=== PATIENT | female | born 1940 | race Asian ===

== ENCOUNTER 2018-11-22 22:17 | Emergency (ER) | payer OTHER ==
[2018-11-22 22:21] VITALS: BP 156/46; PULSE 66; TEMP 97.4; BMI 21.6
[2018-11-22] MEDS ORDERED: AMOX TR/POT CLAV 875MG/125MG TABLETS (FP) PO ONE (23:24)
--- NOTE | 2018-11-22 23:25 | PDOC ---
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 She states that she measured bps at home to 180s and 200s systolic. Denies headaches, chest pain, shortness of breath and abdominal pain. Patient reports that she took two of losartan before coming to the ED. Patient states that she's had a lingering cold for the next two weeks. She reports some pain and sensation of fullness in her face. Denies fevers, chills, nausea, vomiting. Denies chest pain, cough. Denies sick contacts. Recently returned from [place]. Trialed on z-pack for possible sinus infection. Past History - Past Medical History Allergies/Adverse Reactions: Allergies Allergy/AdvReac Type Severity Reaction Status Date / Time Tetracyclines Allergy Intermediate Verified 11/22/18 22:21 Home Medications: Ambulatory Orders Alendronate Na [Fosamax (Weekly)] 70 mg PO Q7D 03/29/15 Aspirin [Aspirin EC] 81 mg PO DAILY 03/29/15 Calcium Carbonate/Vitamin D3 [Calcium 250-D Tablet] 1 each PO DAILY 03/29/15 Cholecalciferol (Vitamin D3) [Vitamin D3] 1,000 unit PO DAILY 03/29/15 Cyclosporine [Restasis] 1 each OP BID 03/29/15 Docosahexanoic Acid/Epa [Fish Oil Softgel] 1 cap PO DAILY 03/29/15 Losartan Potassium 100 mg PO DAILY 03/29/15 Multivitamins [Multivit ([facility] Formul[facility])] 1 tab PO DAILY 03/29/15 Propylene Glycol/Peg 400 [Systane 0.3-0.4% Eye Drops] 30 ml OP QID 03/29/15 Simvastatin 10 mg PO DAILY 03/29/15 Mag Carb/Aluminum Hydrox/Algin [Gaviscon Liquid] 355 ml PO PRN PRN #0 oral.susp 03/30/15 Pantoprazole Sodium [Protonix -] 40 mg PO HS #30 tablet.ec 03/30/15 Terbinafine HCl 250 mg PO DAILY 03/30/15 Amoxicillin/Potassium Clav [Augmentin 875-125 Tablet] 1 each PO BID #20 tablet 11/22/18 Anemia: No Asthma: No CVA: No COPD: No Dementia: No Diabetes: No HTN: Yes Hypercholesterolemia: Yes Seizures: No - Suicide/Smoking/Psychosocial Hx Smoking History: Never smoked Hx Alcohol Use: Yes ([facility]) Drug/Substance Use Hx: No Review of Systems - Review of Systems Comments:: 11/22/18 23:23 GENERAL/CONSTITUTIONAL: No fever or chills. No weakness. HEAD, EYES, EARS, NOSE AND THROAT: No change in vision. No ear pain or discharge. No sore throat. CARDIOVASCULAR: No chest pain or shortness of breath RESPIRATORY: No cough, wheezing, or hemoptysis. GASTROINTESTINAL: No nausea, vomiting, diarrhea or constipation. GENITOURINARY: No dysuria, frequency, or change in urination. MUSCULOSKELETAL: No joint or muscle swelling or pain. No neck or back pain. SKIN: No rash NEUROLOGIC: No headache, vertigo, loss of consciousness, or change in strength/ sensation. *Physical Exam - Vital Signs Last Vital Signs Temp Pulse Resp BP Pulse Ox 97.4 F L 66 18 156/46 L 100 11/22/18 22:19 11/22/18 22:19 11/22/18 22:19 11/22/18 22:19 11/22/18 22:19 - Physical Exam Comments: 11/22/18 23:23 GENERAL: Awake, alert, and fully oriented, in no acute distress HEAD: No signs of trauma, normocephalic, atraumatic EYES: PERRLA, EOMI, sclera anicteric, conjunctiva clear ENT: Auricles normal inspection, hearing grossly normal, nares patent, oropharynx clear without exudates. Moist mucosa. Tender to maxilla and frontal sinuses NECK: Normal ROM, supple, no lymphadenopathy, JVD, or masses LUNGS: No distress, speaks full sentences, clear to auscultation bilaterally HEART: Regular rate and rhythm, normal S1 and S2, no murmurs, rubs or gallops, peripheral pulses normal and equal bilaterally. ABDOMEN: Soft, nontender, normoactive bowel sounds. No guarding, no rebound. No masses EXTREMITIES: Normal inspection, Normal range of motion, no edema. No clubbing or cyanosis. NEUROLOGICAL: Cranial nerves II through XII grossly intact. Normal speech, no focal sensorimotor deficits SKIN: Warm, Dry, normal turgor, no rashes or lesions noted. Moderate Sedation - Procedure Monitoring Vital Signs: Procedure Monitoring Vital Signs Temperature 97.4 F L 11/22/18 22:19 Pulse Rate 66 11/22/18 22:19 Respiratory Rate 18 11/22/18 22:19 Blood Pressure 156/46 L 11/22/18 22:19 O2 Sat by Pulse Oximetry (%) 100 11/22/18 22:19 Medical Decision Making - Medical Decision Making 11/22/18 23:23 Patient is 78F with history of htn here today with signs of sinusitis, uncomplicated. Vitals normal and stable. HTN under control. Will prescribe augmentin, discharge home. *DC/Admit/Observation/Transfer Diagnosis at time of Disposition: Sinusitis - Discharge Dispostion Disposition: HOME Condition at time of disposition: Good Decision to Admit order: No - Referrals - Patient Instructions Printed Discharge Instructions: DI for Sinusitis Additional Instructions: Please follow up with your primary care doctor this week. Please return if you have any new, worsening or concerning symptoms, especially fever, increasing pain and shortness of breath. - Post Discharge Activity
[2018-11-22] MEDS ORDERED: AMOX TR/POT CLAV 875MG/125MG TABLETS (FP) ONE (23:32)
--- NOTE | 2018-11-22 23:33 | PDOC ---
Attending Attestation - Resident Resident Name: Brent Robledo - ED Attending Attestation I have performed the following: I have examined & evaluated the patient, The case was reviewed & discussed with the resident, I agree w/resident's findings & plan, Exceptions are as noted - HPI HPI: 11/22/18 23:23 This is a 78 yo F who presents to the ER with a complaint of elevated blood pressure pt also has a complaint of upper respiratory infection Symptoms have been present for the past 2-3 weeks they briefly improved while she was in [place] They have since resolved Pt was treated with Azithromycin which has not helped this evening took an [place] Since then she noted very elevated blood pressure (SBP 200s) She took an extra dose of losartan (totaling 100mg) this evening Improved bp but pt was very concerned about going to bed with her blood pressure being elevated - Physicial Exam PE: 11/22/18 23:33 GENERAL: The patient is in no acute distress. HEAD: Normal EYES: PERRLA, EOMI, sclera anicteric, conjunctiva clear. ENT: Ears normal, nares patent, oropharynx clear without exudates. Moist mucous membranes. NECK: Normal range of motion, supple without JVD LUNGS: Breath sounds equal, clear to auscultation bilaterally. No wheezes, and no crackles. HEART:Regular rate and rhythm, normal S1 and S2 without murmur, rub or gallop. ABDOMEN: Soft, nontender, normoactive bowel sounds. No guarding, no rebound. No masses palpable. EXTREMITIES: Normal range of motion, no edema. NEUROLOGICAL: Cranial nerves II through XII grossly intact. Normal speech. No focal neurological deficits. SKIN: Warm, Dry, normal turgor, no rashes or lesions noted. - Medical Decision Making 11/22/18 23:33 BP repeated manually 140s/80s Pt feels well no chest pain, no palpitations, no shortness of breath Pt has congestion Will plan to discharge to home Pt has some facial tenderness ? sinusitis Will plan to give Augmentin Follow up with PMD Clinical impression: Essential hypertension, initial presentation sinusitis, initial presentation
== END 2018-11-23 00:02 | disposition home or self-care (01) ==
LOC: JER 22:17
DX: J01.90 Acute sinusitis, unspecified (principal); I10 Essential (primary) hypertension
CPT/HCPCS: 99282-25